=== PATIENT | male | born 1950 | race Caucasian/White ===

== ENCOUNTER 2021-06-17 19:29 | Inpatient (IN) ==
[2021-06-17] MEDS ORDERED: Acetaminophen 325 MG TABLET PO PRN (21:01)
[2021-06-17] MEDS ORDERED: *HR* HYDROcodone/Acet 5/325 mg TABLET PO PRN ×2 (21:18→21:19)
[2021-06-18] MEDS: *HR* HYDROcodone/Acet 5/325 mg TABLET PO PRN ×2 (06:20→15:32)
[2021-06-18] MEDS: *HR* Enoxaparin 40 MG/0.4 ML SYRINGE SQ SCH (06:20)
[2021-06-18 07:42] LABS: Basophils % 0.2 %; Eosinophils # 0.1 K/mcL (0.0-0.6); Hematocrit 28.8 % (37.5-50.1); Hemoglobin 9.3 g/dL (12.9-16.9); Immature Granulocytes % 0.6 % (0-4); Lymphocytes # 0.7 K/mcL (0.6-4.6); Lymphocytes % 8.3 %; Mean Corpuscular HGB Conc 32.3 g/dL (31.6-35.5); Mean Corpuscular Hemoglobin 28.6 pg (28.0-33.3); Mean Corpuscular Volume 88.6 fL (83.0-100.0); Mean Platelet Volume 11.3 fL (9.4-12.4); Monocytes # 0.8 K/mcL (0.0-1.3); Monocytes % 9.1 %; Neutrophils # 6.6 K/mcL (1.6-8.9); Platelet Count 284 K/mcL (140-400); Red Blood Count 3.25 M/mcL (4.19-5.50); Red Cell Distribution Width 15.6 % (11.5-14.5); Segmented Neutrophils % 80.8 %; White Blood Count 8.2 K/mcL (4.3-11.1)
[2021-06-18 07:54] LABS: BUN/Creatinine Ratio 29 (6-26); Blood Urea Nitrogen 33 mg/dL (8-23); Calcium 8.4 mg/dL (8.6-10.3); Carbon Dioxide 31 mEq/L (23-29); Chloride 97 mEq/L (98-107); Glucose 91 mg/dL (70-105); Osmolality,Calculated 289 (280-300); Potassium 4.1 mEq/L (3.5-5.1); Sodium 136 mEq/L (136-145); eGFR For African Americans > 60 (> 60); eGFR For Non-African Americans > 60 (> 60)
[2021-06-18] MEDS: Cholecalciferol (D-3) 1,000 UNIT (25MCG) TABLET PO SCH (08:46)
[2021-06-18] MEDS: predniSONE 10 MG TABLET PO SCH (08:47)
[2021-06-18] MEDS: Furosemide 20 MG TABLET PO SCH ×2 (08:47→15:33)
[2021-06-18] MEDS: Multivit/Ca/Min/Fe/FA 1 TAB TABLET PO SCH (08:47)
[2021-06-18] MEDS: *HR* Amiodarone 200 MG TABLET PO SCH (08:47)
[2021-06-18] MEDS: Aspirin Enteric Coated 325 MG Tablet PO SCH (08:48)
[2021-06-19] MEDS: *HR* Enoxaparin 40 MG/0.4 ML SYRINGE SQ SCH (06:31)
[2021-06-19] MEDS: Aspirin Enteric Coated 325 MG Tablet PO SCH (08:13)
[2021-06-19] MEDS: *HR* Amiodarone 200 MG TABLET PO SCH (08:13)
[2021-06-19] MEDS: predniSONE 10 MG TABLET PO SCH (08:13)
[2021-06-19] MEDS: Furosemide 20 MG TABLET PO SCH ×2 (08:14→16:24)
[2021-06-19] MEDS: Multivit/Ca/Min/Fe/FA 1 TAB TABLET PO SCH (08:14)
[2021-06-19] MEDS: Cholecalciferol (D-3) 1,000 UNIT (25MCG) TABLET PO SCH (08:14)
[2021-06-20] MEDS: *HR* Enoxaparin 40 MG/0.4 ML SYRINGE SQ SCH (04:18)
[2021-06-20] MEDS: *HR* Amiodarone 200 MG TABLET PO SCH (07:59)
[2021-06-20] MEDS: Aspirin Enteric Coated 325 MG Tablet PO SCH (07:59)
[2021-06-20] MEDS: Multivit/Ca/Min/Fe/FA 1 TAB TABLET PO SCH (07:59)
[2021-06-20] MEDS: Furosemide 20 MG TABLET PO SCH ×2 (07:59→16:47)
[2021-06-20] MEDS: Cholecalciferol (D-3) 1,000 UNIT (25MCG) TABLET PO SCH (07:59)
[2021-06-20] MEDS: predniSONE 10 MG TABLET PO SCH (08:00)
[2021-06-20] MEDS: ALPRAZolam 0.5 MG TABLET PO PRN (19:38)
[2021-06-21] MEDS: *HR* Enoxaparin 40 MG/0.4 ML SYRINGE SQ SCH (05:08)
[2021-06-21] MEDS: Multivit/Ca/Min/Fe/FA 1 TAB TABLET PO SCH (07:58)
[2021-06-21] MEDS: Furosemide 20 MG TABLET PO SCH ×2 (07:58→17:03)
[2021-06-21] MEDS: *HR* HYDROcodone/Acet 5/325 mg TABLET PO PRN (07:58)
[2021-06-21] MEDS: *HR* Amiodarone 200 MG TABLET PO SCH (07:58)
[2021-06-21] MEDS: Cholecalciferol (D-3) 1,000 UNIT (25MCG) TABLET PO SCH (07:58)
[2021-06-21] MEDS: predniSONE 10 MG TABLET PO SCH (07:59)
[2021-06-21] MEDS: Aspirin Enteric Coated 325 MG Tablet PO SCH (07:59)
[2021-06-21] MEDS: ALPRAZolam 0.5 MG TABLET PO PRN (20:41)
[2021-06-21] MEDS: Melatonin 3 MG TABLET PO PRN (20:41)
[2021-06-22 04:57] LABS: Hematocrit 29.3 % (37.5-50.1); Hemoglobin 9.2 g/dL (12.9-16.9); Mean Corpuscular HGB Conc 31.4 g/dL (31.6-35.5); Mean Corpuscular Hemoglobin 28.3 pg (28.0-33.3); Mean Corpuscular Volume 90.2 fL (83.0-100.0); Mean Platelet Volume 10.5 fL (9.4-12.4); Platelet Count 243 K/mcL (140-400); Red Blood Count 3.25 M/mcL (4.19-5.50); Red Cell Distribution Width 15.8 % (11.5-14.5); White Blood Count 7.5 K/mcL (4.3-11.1)
[2021-06-22 04:59] LABS: INR 1.2; Prothrombin Time 13.3 Seconds (9.4-12.1)
[2021-06-22] MEDS: *HR* Enoxaparin 40 MG/0.4 ML SYRINGE SQ SCH (05:12)
[2021-06-22 05:14] LABS: Alanine Aminotransferase 74 Units/L (7-52); Albumin 2.9 g/dL (3.5-5.7); Albumin/Globulin Ratio 1.2 (1.1-2.2); Alkaline Phosphatase 82 Units/L (34-104); Aspartate Amino Transferase 37 Units/L (13-39); BUN/Creatinine Ratio 28 (6-26); Bilirubin,Total 0.5 mg/dL (0.3-1.0); Blood Urea Nitrogen 27 mg/dL (8-23); Calcium 8.1 mg/dL (8.6-10.3); Carbon Dioxide 29 mEq/L (23-29); Chloride 102 mEq/L (98-107); Globulin 2.5 g/dL (2.4-3.5); Glucose 104 mg/dL (70-105); Magnesium 1.7 mg/dL (1.6-2.6); Osmolality,Calculated 289 (280-300); Potassium 3.6 mEq/L (3.5-5.1); Sodium 137 mEq/L (136-145); Total Protein 5.4 g/dL (6.4-8.9); eGFR For African Americans > 60 (> 60); eGFR For Non-African Americans > 60 (> 60)
[2021-06-22] MEDS: *HR* HYDROcodone/Acet 5/325 mg TABLET PO PRN ×2 (08:13→14:53)
[2021-06-22] MEDS: Aspirin Enteric Coated 325 MG Tablet PO SCH (08:13)
[2021-06-22] MEDS: Furosemide 20 MG TABLET PO SCH ×2 (08:13→16:45)
[2021-06-22] MEDS: Cholecalciferol (D-3) 1,000 UNIT (25MCG) TABLET PO SCH (08:13)
[2021-06-22] MEDS: *HR* Amiodarone 200 MG TABLET PO SCH (08:13)
[2021-06-22] MEDS: Multivit/Ca/Min/Fe/FA 1 TAB TABLET PO SCH (08:13)
[2021-06-22] MEDS: predniSONE 10 MG TABLET PO SCH (08:13)
[2021-06-22] MEDS: ALPRAZolam 0.5 MG TABLET PO PRN (19:59)
[2021-06-22] MEDS: Melatonin 3 MG TABLET PO PRN (19:59)
[2021-06-23] MEDS: *HR* Enoxaparin 40 MG/0.4 ML SYRINGE SQ SCH (05:19)
[2021-06-23] MEDS: Cholecalciferol (D-3) 1,000 UNIT (25MCG) TABLET PO SCH (09:40)
[2021-06-23] MEDS: *HR* Amiodarone 200 MG TABLET PO SCH (09:40)
[2021-06-23] MEDS: predniSONE 10 MG TABLET PO SCH (09:40)
[2021-06-23] MEDS: Multivit/Ca/Min/Fe/FA 1 TAB TABLET PO SCH (09:42)
[2021-06-23] MEDS: Aspirin Enteric Coated 325 MG Tablet PO SCH (09:42)
[2021-06-23] MEDS: *HR* HYDROcodone/Acet 5/325 mg TABLET PO PRN (09:48)
[2021-06-23 19:09] VITALS: O2SAT 93
[2021-06-23] MEDS: Melatonin 3 MG TABLET PO PRN (20:36)
[2021-06-23] MEDS: ALPRAZolam 0.5 MG TABLET PO PRN (20:36)
[2021-06-24] MEDS: *HR* Enoxaparin 40 MG/0.4 ML SYRINGE SQ SCH (05:46)
[2021-06-24] MEDS: *HR* HYDROcodone/Acet 5/325 mg TABLET PO PRN (05:51)
[2021-06-24 07:14] VITALS: BP 123/73; PULSE 70; RESP 16; TEMP 98
[2021-06-24] MEDS: Multivit/Ca/Min/Fe/FA 1 TAB TABLET PO SCH (08:05)
[2021-06-24] MEDS: predniSONE 10 MG TABLET PO SCH (08:05)
[2021-06-24] MEDS: *HR* Amiodarone 200 MG TABLET PO SCH (08:06)
[2021-06-24] MEDS: Cholecalciferol (D-3) 1,000 UNIT (25MCG) TABLET PO SCH (08:06)
[2021-06-24] MEDS: Aspirin Enteric Coated 325 MG Tablet PO SCH (08:06)
[2021-06-24 10:41] LABS: Basophils % 0.3 %; Eosinophils # 0.2 K/mcL (0.0-0.6); Eosinophils % 2.2 %; Hematocrit 31.6 % (37.5-50.1); Hemoglobin 9.6 g/dL (12.9-16.9); Immature Granulocytes % 0.9 % (0-4); Lymphocytes # 0.4 K/mcL (0.6-4.6); Lymphocytes % 4.6 %; Mean Corpuscular HGB Conc 30.4 g/dL (31.6-35.5); Mean Corpuscular Volume 92.1 fL (83.0-100.0); Mean Platelet Volume 10.3 fL (9.4-12.4); Monocytes # 0.4 K/mcL (0.0-1.3); Monocytes % 4.2 %; Neutrophils # 7.7 K/mcL (1.6-8.9); Platelet Count 224 K/mcL (140-400); Red Blood Count 3.43 M/mcL (4.19-5.50); Red Cell Distribution Width 15.9 % (11.5-14.5); Segmented Neutrophils % 87.8 %; White Blood Count 8.8 K/mcL (4.3-11.1)
[2021-06-24 10:56] LABS: BUN/Creatinine Ratio 26 (6-26); Blood Urea Nitrogen 23 mg/dL (8-23); Calcium 8.5 mg/dL (8.6-10.3); Carbon Dioxide 23 mEq/L (23-29); Chloride 103 mEq/L (98-107); Glucose 163 mg/dL (70-105); Osmolality,Calculated 289 (280-300); Potassium 3.4 mEq/L (3.5-5.1); Sodium 136 mEq/L (136-145); eGFR For African Americans > 60 (> 60); eGFR For Non-African Americans > 60 (> 60)
== END 2021-06-24 15:30 | disposition home health service (06) ==
LOC: INPGRE 19:29
PROVIDERS: ADMIT Family Medicine; ATTEND Family Medicine